=== PATIENT | female | born 1990 | race Caucasian/White ===

== ENCOUNTER 2018-05-27 04:05 | Inpatient (IN) | payer OTHER ==
[~2018-05-27] VITALS: Ht 152.4 cm; Wt 68.5 kg
[2018-05-27] MEDS ORDERED: RINGERS SOLUTION,LACTATED 1,000 ML IV PRN (05:19)
[2018-05-27] MEDS ORDERED: OXYTOCIN 30 UNITS/LACT RINGERS 500 ML IV ONE (05:19)
[2018-05-27] MEDS ORDERED: CITRIC ACID/SODIUM CITRATE 30 ML SOLUTION UDCUP PO PRN (05:30)
[2018-05-27] MEDS ORDERED: METOCLOPRAMIDE HCL 5 MG/ML 2 ML VIAL IVP PRN (05:30)
[2018-05-27] MEDS ORDERED: FentaNYL CITRATE-PF 100 MCG/2 ML VIAL IVP PRN (05:30)
[2018-05-27] MEDS ORDERED: PREN1TAB80 PO (05:37)
[2018-05-27 05:40] VITALS: BP 127/68
[2018-05-27 05:52] LABS: BASOPHILS % (AUTO) 0.4 % (0.0-2.0); EOSINOPHILS % (AUTO) 0.2 % (1.0-6.0); HEMATOCRIT 40.1 % (36-46); HEMOGLOBIN 13.5 g/dL (12.0-16.0); LYMPHOCYTES # (AUTO) 1.8 K/uL (1.0-4.8); LYMPHOCYTES % (AUTO) 15.9 % (22.0-44.0); MEAN CORPUSCULAR HEMOGLOBIN 29.5 pg (26.0-34.0); MEAN CORPUSCULAR HGB CONC 33.7 G/dL (31.0-37.0); MEAN CORPUSCULAR VOLUME 88 fL (80-100); MONOCYTES # (AUTO) 0.8 K/uL (0.1-1.0); NEUTROPHILS # (AUTO) 8.6 K/uL (1.8-7.7); NEUTROPHILS % (AUTO) 76.5 % (40.0-70.0); PLATELET COUNT (AUTO)-OB 213 K/uL (150-450); RED BLOOD CELL COUNT(AUTO) 4.58 MIL/uL (4.00-5.20); RED CELL DISTRIBUTION WIDTH 16.4 % (11.5-14.5)
[2018-05-27] MEDS: RINGERS SOLUTION,LACTATED 1,000 ML IV SCH ×5 (06:04→23:06)
[2018-05-27] MEDS ORDERED: ROPIVACAINE HCL/PF 0.2% 100 ML ED ONE (07:47)
[2018-05-27] MEDS ORDERED: LIDOCAINE/PF 2% 5 ML VIAL ONE (07:47)
[2018-05-27] MEDS ORDERED: OXYGEN THERAPY IH SCH (08:00)
[2018-05-27] MEDS ORDERED: DiphenhydrAMINE HCL 50 MG/ML VIAL IVP PRN (08:15)
[2018-05-27] MEDS ORDERED: NALBUPHINE HCL 10 MG/ML VIAL IVP PRN (08:15)
[2018-05-27] MEDS ORDERED: ONDANSETRON HCL 4 MG/2 ML VIAL IVP PRN (08:15)
[2018-05-27] MEDS ORDERED: OXYTOCIN 30 UNITS/LACT RINGERS 500 ML IV PRN ×2 (11:16→13:14)
[2018-05-27] MEDS ORDERED: AMPICILLIN SODIUM 2 GM/NS 100 ML IV ONE (14:00)
[2018-05-27] MEDS: AMPICILLIN SODIUM 1 GM/NS 50 ML IV SCH ×2 (18:46→23:08)
[2018-05-27] MEDS: ROPIVACAINE HCL/PF 0.2% 100 ML ED PRN (22:32)
[2018-05-28] MEDS: ROPIVACAINE HCL/PF 0.2% 100 ML ED PRN (04:45)
[2018-05-28] MEDS: RINGERS SOLUTION,LACTATED 1,000 ML IV SCH ×4 (04:46→23:52)
[2018-05-28] MEDS: AMPICILLIN SODIUM 1 GM/NS 50 ML IV SCH (06:50)
[2018-05-28 07:30] LABS: BASOPHILS % (AUTO) 0.6 % (0.0-2.0); EOSINOPHILS % (AUTO) 0 % (1.0-6.0); HEMATOCRIT 36.6 % (36-46); HEMOGLOBIN 12.3 g/dL (12.0-16.0); LYMPHOCYTES # (AUTO) 1.9 K/uL (1.0-4.8); LYMPHOCYTES % (AUTO) 11.1 % (22.0-44.0); MEAN CORPUSCULAR HEMOGLOBIN 29.7 pg (26.0-34.0); MEAN CORPUSCULAR HGB CONC 33.6 G/dL (31.0-37.0); MEAN CORPUSCULAR VOLUME 88 fL (80-100); MONOCYTES # (AUTO) 1.4 K/uL (0.1-1.0); MONOCYTES % (AUTO) 8.1 % (2.0-9.0); NEUTROPHILS % (AUTO) 80.2 % (40.0-70.0); PLATELET COUNT (AUTO)-OB 172 K/uL (150-450); RED BLOOD CELL COUNT(AUTO) 4.15 MIL/uL (4.00-5.20); RED CELL DISTRIBUTION WIDTH 17.1 % (11.5-14.5)
[2018-05-28 08:16] LABS: CREATININE 2.2 mg/dL (0.60-1.30)
[2018-05-28] MEDS ORDERED: FentaNYL CITRATE-PF 100 MCG/2 ML VIAL ONE ×2 (09:44→11:41)
[2018-05-28] MEDS ORDERED: MORPHINE SULFATE/PF 0.5 MG/ML 10 ML AMP ONE ×2 (09:44→11:42)
[2018-05-28] MEDS ORDERED: LIDOCAINE/PF 2% 5 ML VIAL ONE (09:45)
[2018-05-28] MEDS ORDERED: ACETAMINOPHEN 1000 MG/ISO-OSM 100 ML IV ONE (09:45)
[2018-05-28] MEDS ORDERED: GUM MASTIC/STORAX/MSAL/ALCOHOL LIQUID 0.67 ML VIAL TP ONE (10:00)
[2018-05-28] MEDS ORDERED: MORPHINE SULFATE 10 MG/ML SYRINGE IVP PRN ×2 (10:45→11:00)
[2018-05-28] MEDS ORDERED: DEXAMETHASONE SOD PHOS 4 MG/ML VIAL IVP PRN (10:45)
[2018-05-28] MEDS ORDERED: ONDANSETRON HCL 4 MG/2 ML VIAL IVP PRN ×2 (10:45→11:00)
[2018-05-28] MEDS ORDERED: DiphenhydrAMINE HCL 50 MG/ML VIAL IVP PRN ×2 (10:45→11:00)
[2018-05-28] MEDS ORDERED: NALBUPHINE HCL 10 MG/ML VIAL IVP PRN ×3 (10:45→11:00)
[2018-05-28] MEDS ORDERED: MORPHINE SULFATE 4 MG/ML SYRINGE IVP PRN ×2 (10:45)
[2018-05-28] MEDS ORDERED: FentaNYL CITRATE-PF 100 MCG/2 ML VIAL IVP PRN ×3 (10:45→11:00)
[2018-05-28] MEDS ORDERED: NALOXONE HCL 0.4 MG/ML VIAL IVP PRN (11:00)
[2018-05-28] MEDS ORDERED: MORPHINE SULFATE/PF 1 MG/ML 10 ML AMP ONE (11:43)
[2018-05-28 12:33] LABS: CREATININE 2.28 mg/dL (0.60-1.30); POTASSIUM 3.9 mmol/L (3.5-5.1)
[2018-05-28 12:38] LABS: ALBUMIN 1.8 g/dL (3.4-5.0); TOTAL PROTEIN, SERUM 5.1 g/dL (6.4-8.2)
[2018-05-28] MEDS ORDERED: OXYTOCIN 20 UNITS/LACT RINGERS 1,000 ML IV ONE (15:15)
[2018-05-28] MEDS ORDERED: MEASLES/MUMPS/RUBELLA VACCINE, LIVE 0.5 ML/VIAL SQ ONE (16:45)
[2018-05-28] MEDS ORDERED: LANOLIN 7 GM OINTMENT TP PRN (16:45)
[2018-05-28] MEDS: ACETAMINOPHEN 1000 MG/ISO-OSM 100 ML IV SCH (19:03)
[2018-05-28] MEDS ORDERED: OXYGEN THERAPY IH SCH ×4 (20:00)
[2018-05-29] MEDS: ACETAMINOPHEN 1000 MG/ISO-OSM 100 ML IV SCH (03:03)
[2018-05-29] MEDS ORDERED: OXYTOCIN 10 UNITS/ML VIAL IM ONE (05:22)
[2018-05-29] MEDS ORDERED: EPHEDrine SULFATE 50 MG/ML VIAL IM ONE (05:22)
[2018-05-29] MEDS ORDERED: LIDOCAINE/PF 2% 5 ML VIAL IM ONE (05:22)
[2018-05-29] MEDS ORDERED: PROPOFOL 1% 20 ML VIAL IVP ONE (05:22)
[2018-05-29] MEDS ORDERED: 0.9% SODIUM CHLORIDE 10 ML VIAL IVP ONE (05:22)
[2018-05-29 05:48] LABS: BASOPHILS % (AUTO) 0.1 % (0.0-2.0); EOSINOPHILS % (AUTO) 0.3 % (1.0-6.0); HEMOGLOBIN 10.6 g/dL (12.0-16.0); LYMPHOCYTES # (AUTO) 1.7 K/uL (1.0-4.8); LYMPHOCYTES % (AUTO) 9.9 % (22.0-44.0); MEAN CORPUSCULAR HEMOGLOBIN 29.6 pg (26.0-34.0); MEAN CORPUSCULAR HGB CONC 34.1 G/dL (31.0-37.0); MEAN CORPUSCULAR VOLUME 87 fL (80-100); MONOCYTES # (AUTO) 1.4 K/uL (0.1-1.0); MONOCYTES % (AUTO) 7.8 % (2.0-9.0); NEUTROPHILS # (AUTO) 14.3 K/uL (1.8-7.7); NEUTROPHILS % (AUTO) 81.9 % (40.0-70.0); PLATELET COUNT (AUTO)-OB 158 K/uL (150-450); RED BLOOD CELL COUNT(AUTO) 3.57 MIL/uL (4.00-5.20); RED CELL DISTRIBUTION WIDTH 16.7 % (11.5-14.5)
[2018-05-29] MEDS: RINGERS SOLUTION,LACTATED 1,000 ML IV SCH ×2 (08:27→19:21)
[2018-05-29] MEDS: IBUPROFEN 800 MG TABLET PO PRN ×2 (13:49→19:21)
[2018-05-29] MEDS ORDERED: IBUPROFEN 800 MG TABLET PO PRN (16:45)
[2018-05-29 18:29] LABS: ALANINE AMINOTRANSFERASE 18 U/L (12-78); ALBUMIN 1.6 g/dL (3.4-5.0); ALKALINE PHOSPHATASE 200 U/L (46-116); ANION GAP 10 mmol/L (8-16); ASPARTATE AMINOTRANSFERASE 33 U/L (15-37); BILIRUBIN,TOTAL 0.3 mg/dL (0.1-1.0); CALCIUM, TOTAL 8.2 mg/dL (8.8-10.5); CARBON DIOXIDE 22 mmol/L (22-29); CHLORIDE 104 mmol/L (98-107); CREATININE 0.92 mg/dL (0.60-1.30); GLOMERULAR FILTR. RATE CALC > 60 mL/min (>60); GLUCOSE,RANDOM 81 mg/dL (70-110); SODIUM SERUM 136 mmol/L (136-145); TOTAL PROTEIN, SERUM 5.1 g/dL (6.4-8.2); UREA NITROGEN, BLOOD 23 mg/dL (7-18)
[2018-05-29] MEDS: MAGNESIUM HYDROXIDE SUSPENSION 30 ML UDCUP PO PRN (19:21)
[2018-05-29] MEDS: ACETAMINOPHEN/CODEINE 300-30 MG TABLET PO PRN (22:44)
[2018-05-30] MEDS: IBUPROFEN 800 MG TABLET PO PRN ×3 (06:47→21:20)
[2018-05-30] MEDS: MAGNESIUM HYDROXIDE SUSPENSION 30 ML UDCUP PO PRN (10:39)
[2018-05-30] MEDS: ACETAMINOPHEN/CODEINE 300-30 MG TABLET PO PRN ×2 (15:04→21:20)
[2018-05-31] MEDS: IBUPROFEN 800 MG TABLET PO PRN ×2 (03:14→09:40)
[2018-05-31] MEDS: ACETAMINOPHEN/CODEINE 300-30 MG TABLET PO PRN (09:40)
[2018-05-31] MEDS ORDERED: IBUP-2070 PO (09:50)
[2018-05-31] MEDS ORDERED: FERR-89 PO (09:52)
[2018-05-31] MEDS ORDERED: DSS100 PO (09:52)
== END 2018-05-31 11:00 | disposition home or self-care (01) | DRG 788 ==
LOC: 4S 04:05 → OBSVTOIN 04:05 → 4S 05-28 19:47
PROVIDERS: ADMIT Obstetrics & Gynecology; ATTEND Obstetrics & Gynecology
PROC: 10D00Z1 Extraction of Products of Conception, Low, Open Approach (ICD-10-PCS; principal; 2018-05-28)
DX: O76 Abnormality in fetal heart rate and rhythm complicating labor and delivery (principal); O77.0 Labor and delivery complicated by meconium in amniotic fluid; O33.9 Maternal care for disproportion, unspecified; O62.2 Other uterine inertia; Z3A.37 37 weeks gestation of pregnancy; Z37.0 Single live birth
CPT/HCPCS: 82565; 86850; 86900; 86901; 87081; 89060; J0131; J0290; J0690; J2270; J2274; J2590; J2704; J2765; J2795; J3010; J3490; J7120